=== PATIENT | female | born 1990 | race African-American/Black ===

== ENCOUNTER 2019-11-16 10:17 | Emergency (ER) | payer OTHER ==
[~2019-11-16] VITALS: Ht 160 cm; Wt 99.8 kg
--- NOTE | 2019-11-16 10:55 | Emergency Room Report ---
History of Present Illness General Chief Complaint: General Complaint Source: Patient Present Illness HPI Disclaimer: Please note that this report is being documented using [employer] technology. This can lead to erroneous entry secondary to incorrect interpretation by the dictating instrument. HPI: 29-year-old female presents for multiple issues. First she was complaining of some right-sided ear pain and decreased hearing yesterday. Denied effusion or significant swelling. She put peroxide in the ear and now her symptoms are relieved. Wanted to get it checked out to make sure she does not have an infection. Denies any trauma. Denies any changes in her hearing. Second. She is complaining of body wide boils. 1 of which she popped on her lower abdomen and is red and swollen. Said there was some green drainage initially which is now stopped. Third, she is complaining of vaginal discharge. Thick white and foul-smelling. No sexual intercourse for the past year. Denies dysuria hematuria. No prior STI. Allergies: Coded Allergies: PENICILLINS (Verified Allergy, Severe, Hives, 11/16/19) Patient History Last Menstrual Period: oct 29 Now: No Review of Systems All Other Systems: negative except mentioned in HPI Physical Exam Vital Signs Date Time Temp Pulse Resp B/P (MAP) Pulse Ox O2 Delivery O2 Flow Rate FiO2 11/16/19 10:30 98.2 94 18 109/72 (84) 98 General: Awake and alert, no acute distress HEENT: NC/AT. EOMI. tympanic magnets are both pearly polanco, nonbulging, clear landmarks and no effusions. Hearing appears grossly intact bilaterally. Resp: Normal work of breathing : Moderate mucus in the vaginal vault. No significant purulence or discharge. No cervical motion tenderness. Skin: There is a small area of erythema and slight warmth. Circular, nonraised. Approximately 4 cm wide over the left lower abdomen. Scabbed over old pustule. MSK: Normal tone and bulk. Moving all extremities. No obvious deformity. Neuro: Awake and alert. Mentating appropriately Medical Decision Making Diagnostic Impression: Primary Impression: Cellulitis Additional Impressions: Ear pain Rash Vaginal discharge ER Course 29-year-old female presents with multiple complaints including left-sided ear pain, rash, vaginal discharge. Patient's ears are clear and see no signs of infection. Her symptoms have since resolved complaining of pain yesterday but not today. Follow-up as needed with her PMD. Regarding the rash it looks like she has an early cellulitis likely from popping 1 of the pustules that she is been experiencing over the past week. Will start Keflex. No sign of deep space infection or abscess. Finally, regarding her vaginal discharge. A wet mount was sent showing some epithelial cells white cells and few bacteria but no other significant findings. Little concern for BV or Trichomonas at this time. Likely physiologic as it is more mucus-like appearance. She can follow- up with her [facility] on outpatient basis. Can return to the emergency department other new or worsening symptoms. Laboratory Tests Test 11/16/19 10:40 Urine Color Pale yellow Urine Appearance Clear Urine pH 6.5 (4.5-8.0) Urine Specific [place] 1.015 (1.005-1.035) Urine Protein Negative (NEGATIVE) Urine Glucose (UA) Negative (NEGATIVE) Urine Ketones Negative (NEGATIVE) Urine Blood 1+ (NEGATIVE) H Urine Nitrite Negative (NEGATIVE) Urine Bilirubin Negative (NEGATIVE) Urine Urobilinogen Normal MG/DL (0.0-1.0) Urine Leukocyte Esterase Negative (NEGATIVE) Urine RBC Pending Urine WBC Pending Urine Squamous Epithelial Cells Pending Urine Bacteria Pending Microbiology Date/Time Source Procedure Growth Status 11/16/19 11:20 Vaginal Wet Prep - Final Complete Last Vital Signs Date Time Temp Pulse Resp B/P (MAP) Pulse Ox O2 Delivery O2 Flow Rate FiO2 11/16/19 10:30 98.2 94 18 109/72 (84) 98 Disposition: HOME, SELF-CARE Condition: Stable Scripts Cephalexin* (KEFLEX*) 500 Mg Capsule 500 MG ORAL EVERY 12 HOURS, #14 CAP 0 Refills Prov: Matthew Caldera MD 11/16/19 Matthew Caldera MD Nov 16, 2019 10:55
--- NOTE | 2019-11-16 10:59 | NUR ---
ED Nurse Note:urine sent to labs
[2019-11-16 11:24] LABS: APPEARANCE,URINE CLEAR; BILIRUBIN, URINE NEGATIVE (NEGATIVE); COLOR,URINE PALE YELLOW; GLUCOSE, URINE (UA) NEGATIVE (NEGATIVE); KETONES,URINE NEGATIVE (NEGATIVE); LEUKOCYTE ESTERASE ,URINE NEGATIVE (NEGATIVE); NITRITE,URINE NEGATIVE (NEGATIVE); PH,URINE 6.5 (4.5-8.0); PROTEIN,URINE NEGATIVE (NEGATIVE); UROBILINOGEN,URINE NORMAL MG/DL (0.0-1.0)
--- NOTE | 2019-11-16 11:28 | NUR ---
ED Nurse Note:pelvic exam was done by ER MD in my presence
[2019-11-16 11:35] VITALS: BP 109/72
[2019-11-16] MEDS ORDERED: CEPHALEXIN500 MG ORAL (11:43)
--- NOTE | 2019-11-16 12:25 | NUR ---
ER DISCHARGE NOTE: Patient is cleared to be discharged per ERMD, pt is aox4, on room air, with stable vital signs. pt was given dc and prescription instructions, pt was able to verbalize understanding, pt is able to ambulate with steady gait. pt took all belongings.
[2019-11-16 12:27] VITALS: BP 109/72
== END 2019-11-16 12:15 | disposition home or self-care (01) ==
LOC: EMR 11:10
DX: L03.311 Cellulitis of abdominal wall (principal); H92.01 Otalgia, right ear; R21 Rash and other nonspecific skin eruption; N89.8 Other specified noninflammatory disorders of vagina; Z88.0 Allergy status to penicillin
CPT/HCPCS: 81003; 87210; Z7502; 99283